=== PATIENT | male | born 1950 | race Caucasian/White ===

== ENCOUNTER 2018-02-23 07:32 | Outpatient (RCR) | payer MEDICARE, BC, SELFPAY ==
--- NOTE | 2018-02-23 08:12 | PTTR_ITS ---
DATE: 02/23/18 SUBJECTIVE: Gagan reporting his motion has tightening up slightly since last seeing me, but his overall discomfort remains reduced compared to pre-PT status. He is managing well with his towel mulligan stretches, and thoracic rotation stretch. He struggles with rotating his head when driving, but still notes it is overall improved, as he does not seem to rotating his entire upper body as he once did. OBJECTIVE: KX applied to all codes N/A Manual therapy: ([id number]). To the c-spine: Manual traction, unilateral traction and facet upgliding/rotation. Articular sidegliding bilaterally, all cervical segments, grade 4++ OA retraction oscillations, with continued hypomobility noted. Mid cervical flexion stretching, with end range rotation to 5-10* Bilateral rotation and SB mobilizations with aggressive grade 4++ oscillations and contralateral MET's. OA flexion oscillation attempt, but hypomobile. To the t-spine PA throughout all segments, grade 4++ oscillations. Seated thoracic rotation overpressure grade 4++ ROM: C-spine rotation 45* bilaterally post (20* pre rx), SB 5* at best, mid cervical flexion stretching 40* post rx ( 20* pre rx), extension 30* T-spine rotation 20*, improving to 45* post mobs. Direct treatment time: 30 minutes Total treatment time: 30 minutes Assessment: Gagan has plateaued in regards to mobility gains, and fortunately is having lasting relief between sessions. It is unrealistic at this point to expect great mobility gains or discomfort relief, mainly due to the chronicity of his condition and anticipated level of arthritis. He is complaint with his home mobilization, which has allowed for halfway management. 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 Plan: Follow up in one month.
== END 2018-03-17 23:59 | disposition home or self-care (01) ==
LOC: PT 07:32
PROVIDERS: PCP Family Medicine; Referring Provider Family Medicine; Visit Provider Family Medicine
DX: M54.2 Cervicalgia (principal); M43.6 Torticollis; M47.812 Spondylosis without myelopathy or radiculopathy, cervical region; M79.89 Other specified soft tissue disorders
CPT/HCPCS: 97140

== ENCOUNTER 2018-12-20 01:20 | Outpatient (CLI) | payer MEDICARE, BC, SELFPAY ==
[2018-12-20 09:40] LABS: Calculated LDL 79; Cholesterol 140 mg/dL (50-200); HDL Cholesterol 40 mg/dL (40-60); Triglyceride 107 mg/dL (30-150)
[2018-12-21 12:08] LABS: PSA, Screening 1.3 ng/ml (0-4.5)
== END 2018-12-20 01:40 ==
PROVIDERS: PCP Family Medicine; Visit Provider Family Medicine
DX: E78.00 Pure hypercholesterolemia, unspecified (principal); Z12.5 Encounter for screening for malignant neoplasm of prostate
CPT/HCPCS: 36415; 80061; 83721; 84153

== ENCOUNTER 2022-01-07 11:02 | Outpatient (CLI) | payer MEDICARE, BC, SELFPAY ==
[2022-01-07 15:52] LABS: CREATININE 0.9 mg/dL (0.70-1.30)
== END 2022-01-07 11:03 | disposition home or self-care (01) ==
LOC: LBO 12:04
PROVIDERS: PCP Family Medicine; Visit Provider Nurse Practitioner Family
DX: U07.1 COVID-19 (principal)
CPT/HCPCS: 36415; 82565